=== PATIENT | male | born 1955 | race Caucasian/White ===

== ENCOUNTER 2017-06-01 21:45 | Emergency (ER) | payer BC ==
--- NOTE | 2017-06-01 22:26 | ERPHSYRPT ---
- History of Present Illness Time Seen by Provider: 06/01/17 22:20 Source: patient Exam Limitations: no limitations Patient Subjective Stated Complaint: Pt stated that he started noticing this AM that he wasn't able to empty his bladder. He will go to the restroom and only "trickle". Triage Nursing Assessment: Pt is A&O x3. Chest clear. Heart sounds normal. No skin issues. Abdomen is distended and is in pain during palpation and at rest. Rates his pain as a 5 out of 10. Physician History: Pt stated that he started noticing this AM that he wasn't able to empty his bladder. He will go to the restroom and only "trickle". Had same problem 7 years ago. recently 1 day ago he had CT abdomen and pelvis and was given dye Timing/Duration: today Severity of Pain-Max: none Severity of Pain-Current: none Modifying Factors: Improves With: nothing Associated Symptoms: urinary frequency Allergies/Adverse Reactions: No Known Drug Allergies Allergy (Verified 06/25/16 22:48) Home Medications: Aspirin [Aspirin EC] 81 mg PO HS 09/02/14 [History] Atenolol 25 mg PO DAILY 09/02/14 [History] Atorvastatin Calcium 20 mg PO HS 09/02/14 [History] Citalopram Hydrobromide 20 mg* [ceLEXa 20 MG] 20 mg PO DAILY 09/02/14 [ History] Dutasteride 0.5 MG [Avodart 0.5 MG] 0.5 mg PO HS 09/02/14 [History] Lansoprazole 30 mg PO DAILY 09/02/14 [History] Nitroglycerin [Nitrostat] 0.4 mg SL UD 09/02/14 [History] Ranitidine HCl 150 mg PO BID 09/02/14 [History] Fluticasone/Salmeterol [Advair 250-50 Diskus] 1 puff IH BID 06/25/16 [History] Hx Tetanus, Diphtheria Vaccination/Date Given: Yes (UNKNOWN) Hx Influenza Vaccination/Date Given: No Hx Pneumococcal Vaccination/Date Given: No Immunizations Up to Date: Yes - Past Medical History Pertinent Past Medical History: Yes Neurological History: No Pertinent History ENT History: No Pertinent History Cardiac History: Arrhythmia, Coronary Artery Disease, High Cholesterol Respiratory History: COPD Endocrine Medical History: No Pertinent History Musculoskeletal History: No Pertinent History GI Medical History: GERD History: Other Psycho-Social History: No Pertinent History Male Reproductive Disorders: Prostate Problems - Past Surgical History Past Surgical History: Yes Neuro Surgical History: Other Cardiac: Cardiac Catheterization Respiratory: No Pertinent History Gastrointestinal: No Pertinent History Genitourinary: No Pertinent History Musculoskeletal: No Pertinent History Male Surgical History: No Pertinent History Other Surgical History: BACK SURGERY, 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 - Social History Smoking Status: Current every day smoker Exposure to second hand smoke: Yes Drug Use: none Patient Lives Alone: No - Review of Systems Constitutional: No Symptoms Ears, Nose, & Throat: No Symptoms Respiratory: No Symptoms Cardiac: No Symptoms Abdominal/Gastrointestinal: No Symptoms Genitourinary Symptoms: Urinary Retention Musculoskeletal: No Symptoms Skin: No Symptoms Neurological: No Symptoms - Nursing Vital Signs Nursing Vital Signs: Initial Vital Signs Temperature 98.6 F 06/01/17 21:54 Pulse Rate 92 H 06/01/17 21:54 Blood Pressure 145/84 06/01/17 21:54 O2 Sat by Pulse Oximetry 96 06/01/17 21:54 Pain Scale Pain Intensity 5 - Physical Exam General Appearance: no apparent distress Eye Exam: PERRL/EOMI Ears, Nose, Throat Exam: normal ENT inspection Neck Exam: normal inspection Respiratory Exam: normal breath sounds Cardiovascular Exam: regular rate/rhythm Gastrointestinal/Abdomen Exam: distention (bladder ) SpO2: 96 - Course Nursing assessment & vital signs reviewed: Yes Ordered Tests: Active Orders 24 hr Category Date Time Status Urias [Catheter-Carlotta Urias] STAT Care 06/01/17 22:03 Active UA W/RFX UR CULTURE Stat Lab 06/01/17 22:20 Ordered - Progress Progress: improved Progress Note: 06/01/17 22:23 urias catheter placed. 1 liter of urine drained. patient is feeling much better , plan to discharge him with indwelling urias till sunday. advised to go to Dr Celeste Gordillo office on sunday AM for catheter removal Counseled pt/family regarding: lab results, diagnosis, need for follow-up - Departure Time of Disposition: 22:24 Departure Disposition: Home Clinical Impression: Acute retention of urine Condition: Stable Critical Care Time: No Referrals: MARIEL GORDILLO MD [Primary Care Provider] - Instructions: Urinary Retention in Men Additional Instructions: Follow-up with Dr. gordillo on Sunday morning for catheter removal, before that if any problem, come back to the emergency room. Continue all your home medications as usual. Follow the catheter Protocol.
[2017-06-01 22:33] VITALS: BP 115/66; PULSE 80; O2SAT 95
[2017-06-01 22:49] LABS: Collection Type CATH; Leukocyte Esterase NEGATIVE (NEGATIVE)
[2017-06-01 22:50] LABS: ADD URINE CULTURE? NO (NO); Bacteria RARE /HPF (NEGATIVE); Bilirubin NEGATIVE (NEGATIVE); Blood 250 Ery/ul (0-5); COMPLETE URINE MICROSCOPIC? YES; Epithelial Cells RARE /HPF (FEW); Glucose NEGATIVE (NEGATIVE)
== END 2017-06-01 22:55 | disposition home or self-care (01) ==
LOC: ED 21:45
DX: R33.9 Retention of urine, unspecified (principal)
CPT/HCPCS: 51702; 81000; 99283

== ENCOUNTER 2017-06-02 14:45 | Emergency (ER) | payer BC ==
[2017-06-02 15:00] VITALS: BP 138/84; PULSE 88; O2SAT 98
--- NOTE | 2017-06-02 15:12 | ERPHSYRPT ---
- History of Present Illness Time Seen by Provider: 06/02/17 14:56 Source: patient Exam Limitations: no limitations Patient Subjective Stated Complaint: Pt states "I had this urinary catheter placed last night and it is leaking." Triage Nursing Assessment: Pt alert and oriented X 3, skin pwd ambulates without difficutly, able to speak in full sentences. pt has indwelling urinary catheter with leg band on. Physician History: 61-year-old white male seen last night secondary to urinary retention and a Rushing catheter was placed. Patient states he has a history of prostate problems he was seen last night secondary to urinary obstruction a Rushing catheter was placed. Patient is here today stating that he is having leaking around his catheter. He is requesting to have the catheter removed I have offered to replace the catheter but he states he has done the same thing in the past and would like to try having the Rushing catheter removed at this time he states he will return or follow-up with his family doctor if he has further urinary obstruction. Past medical history includes arrhythmia, coronary artery disease, hyperlipidemia, COPD, GERD, prostate problems. 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 Timing/Duration: today (catheter placed last night leaking today around Rushing) Severity: mild Modifying Factors: Improves With: nothing Associated Symptoms: No nausea, No vomiting, No abdominal pain, No shortness of breath, No heartburn, No diaphoresis, No cough, No chills, No chest pain, No fever, No headaches, No loss of appetite, No malaise, No rash, No syncope, No seizure, No weakness Allergies/Adverse Reactions: No Known Drug Allergies Allergy (Verified 06/25/16 22:48) Home Medications: Aspirin [Aspirin EC] 81 mg PO HS 09/02/14 [History] Atenolol 25 mg PO DAILY 09/02/14 [History] Atorvastatin Calcium 20 mg PO HS 09/02/14 [History] Citalopram Hydrobromide 20 mg* [ceLEXa 20 MG] 20 mg PO DAILY 09/02/14 [ History] Dutasteride 0.5 MG [Avodart 0.5 MG] 0.5 mg PO HS 09/02/14 [History] Lansoprazole 30 mg PO DAILY 09/02/14 [History] Fluticasone/Salmeterol [Advair 250-50 Diskus] 1 puff IH BID 06/25/16 [History] Hx Tetanus, Diphtheria Vaccination/Date Given: No Hx Influenza Vaccination/Date Given: Yes Hx Pneumococcal Vaccination/Date Given: No Immunizations Up to Date: Yes - Review of Systems Constitutional: No Fever, No Chills Eyes: No Symptoms Ears, Nose, & Throat: No Symptoms Respiratory: No Cough, No Dyspnea Cardiac: No Chest Pain, No Edema, No Syncope Abdominal/Gastrointestinal: No Abdominal Pain, No Nausea, No Vomiting, No Diarrhea, No Constipation, No Hematemesis, No Hematochezia, No Melena, No Dysphagia, No Appetite Changes Genitourinary Symptoms: Urinary Retention (urinary retention with Rushing placed last night now leaking around Rushing) Musculoskeletal: No Back Pain, No Neck Pain Skin: No Rash Neurological: No Dizziness, No Focal Weakness, No Sensory Changes Psychological: No Symptoms Endocrine: No Symptoms All Other Systems: Reviewed and Negative - Past Medical History Pertinent Past Medical History: Yes Neurological History: No Pertinent History ENT History: No Pertinent History Cardiac History: Arrhythmia, Coronary Artery Disease, High Cholesterol Respiratory History: COPD Endocrine Medical History: No Pertinent History Musculoskeletal History: No Pertinent History GI Medical History: GERD History: Other Psycho-Social History: No Pertinent History Male Reproductive Disorders: Prostate Problems - Past Surgical History Past Surgical History: Yes Neuro Surgical History: Other Cardiac: Cardiac Catheterization Respiratory: No Pertinent History Gastrointestinal: No Pertinent History Genitourinary: No Pertinent History Musculoskeletal: No Pertinent History Male Surgical History: No Pertinent History Other Surgical History: BACK SURGERY, 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 - Social History Smoking Status: Current every day smoker How long have you smoked: years Exposure to second hand smoke: Yes Drug Use: none Patient Lives Alone: No - Nursing Vital Signs Nursing Vital Signs: Initial Vital Signs Temperature 97.3 F 06/02/17 14:52 Pulse Rate 88 06/02/17 14:52 Respiratory Rate 16 06/02/17 14:52 Blood Pressure 138/84 06/02/17 14:52 O2 Sat by Pulse Oximetry 98 06/02/17 14:52 Pain Scale Pain Intensity 0 - Physical Exam General Appearance: no apparent distress, alert Eye Exam: PERRL/EOMI, eyes nml inspection Ears, Nose, Throat Exam: normal ENT inspection, TMs normal, pharynx normal, moist mucous membranes Neck Exam: normal inspection, non-tender, supple, full range of motion Respiratory Exam: normal breath sounds, lungs clear, No respiratory distress Cardiovascular Exam: regular rate/rhythm, normal heart sounds, normal peripheral pulses Gastrointestinal/Abdomen Exam: soft, normal bowel sounds, No tenderness, No mass Male Genitalia Exam: other (Rushing catheter in place) Back Exam: normal inspection, normal range of motion, No CVA tenderness, No vertebral tenderness Extremity Exam: normal inspection, normal range of motion, pelvis stable Neurologic Exam: alert, oriented x 3, cooperative, normal mood/affect, nml cerebellar function, nml station & gait, sensation nml, No motor deficits Skin Exam: normal color, warm, dry, No rash Lymphatic Exam: No adenopathy SpO2 Interpretation: normal (98%) SpO2: 98 Oxygen Delivery: Room Air - Course Nursing assessment & vital signs reviewed: Yes - Progress Progress: improved Progress Note: 06/02/17 15:10 61-year-old white male who had a Rushing catheter placed last night secondary to urinary obstruction. He states he is now leaking around the Rushing. I have offered to replace the Rushing he states he does not want a Rushing replaced he would like it removed he states he had similar problems in the past had a Rushing placed in the had some leakage had a removed and he was doing fine. Will go ahead and have the nurses removed the Rushing. I have informed the patient that he could end up having urinary obstruction again and might need to have the Rushing replaced. He is to follow-up with his family doctor. He is return if obstruction or problems. - Departure Time of Disposition: 15:11 Departure Disposition: Home Clinical Impression: History of urinary tract obstruction Problem with Rushing catheter Qualifiers: Encounter type: initial encounter Qualified Code(s): T83.9XXA - Unspecified complication of genitourinary prosthetic device, implant and graft, initial encounter Condition: Fair Critical Care Time: No Referrals: MARIEL QUINONES MD [Primary Care Provider] - Additional Instructions: Return home. Follow-up with your family doctor. Return if unable to urinate or problems or for acute distress or for severe symptoms.
== END 2017-06-02 15:21 | disposition home or self-care (01) ==
LOC: ED 14:45
DX: T83.038A Leakage of other urinary catheter, initial encounter (principal); Z87.898 Personal history of other specified conditions
CPT/HCPCS: 99282; 99284

== ENCOUNTER 2019-10-27 20:54 | Emergency (ER) | payer MEDICARE, OTHER ==
--- NOTE | 2019-10-27 20:57 | ERPHSYRPT ---
- History of Present Illness Time Seen by Provider: 10/27/19 20:56 Source: patient Exam Limitations: no limitations Physician History: This is a 64-year-old male with history of prostate issues and recurrent acute urinary retention. The patient does have a history of atrial fibrillation hypertension and coronary artery disease. However, he has no complaints relative to these issues. States he has not been unable to urinate today at all. He just desires a straight catheterization and not Rushing placement to be discharged with that. He will then follow-up with his urologist. Timing/Duration: today Activites at Onset: none Quality: fullness, pressure Onset Location: suprapubic Pain Radiation: none Severity of Pain-Max: mild Severity of Pain-Current: mild Modifying Factors: Improves With: other (Able to urinate) Associated Symptoms: abdominal pain (Pubic pressure) Allergies/Adverse Reactions: No Known Drug Allergies Allergy (Verified 10/27/19 21:12) Home Medications: Aspirin [Aspirin EC] 81 mg PO HS 09/02/14 [History] Atenolol 25 mg PO DAILY 09/02/14 [History] Atorvastatin Calcium 20 mg PO HS 09/02/14 [History] Citalopram Hydrobromide 20 mg* [ceLEXa 20 MG] 20 mg PO DAILY 09/02/14 [ History] Dutasteride 0.5 MG [Avodart 0.5 MG] 0.5 mg PO HS 09/02/14 [History] Lansoprazole 30 mg PO DAILY 09/02/14 [History] Fluticasone/Salmeterol [Advair 250-50 Diskus] 1 puff IH BID 06/25/16 [History] Hx Tetanus, Diphtheria Vaccination/Date Given: No Hx Influenza Vaccination/Date Given: Yes Hx Pneumococcal Vaccination/Date Given: No - Past Medical History Pertinent Past Medical History: Yes Neurological History: No Pertinent History ENT History: No Pertinent History Cardiac History: Arrhythmia, Coronary Artery Disease, High Cholesterol Respiratory History: COPD Endocrine Medical History: No Pertinent History Musculoskeletal History: No Pertinent History GI Medical History: GERD History: Other Psycho-Social History: No Pertinent History Male Reproductive Disorders: Prostate Problems - Past Surgical History Past Surgical History: Yes Neuro Surgical History: Other Cardiac: Cardiac Catheterization Respiratory: No Pertinent History Gastrointestinal: No Pertinent History Genitourinary: No Pertinent History Musculoskeletal: No Pertinent History Male Surgical History: No Pertinent History Other Surgical History: BACK SURGERY, 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 - Social History Smoking Status: Current every day smoker How long have you smoked: years Exposure to second hand smoke: Yes Drug Use: none Patient Lives Alone: No - Review of Systems Constitutional: No Symptoms Eyes: No Symptoms Ears, Nose, & Throat: No Symptoms Respiratory: No Symptoms Cardiac: No Symptoms Abdominal/Gastrointestinal: Abdominal Pain (Prepubic pressure) Genitourinary Symptoms: Urinary Retention Musculoskeletal: No Symptoms Skin: No Symptoms Neurological: No Symptoms Psychological: No Symptoms Endocrine: No Symptoms Hematologic/Lymphatic: No Symptoms Immunological/Allergic: No Symptoms All Other Systems: Reviewed and Negative - Nursing Vital Signs Nursing Vital Signs: Initial Vital Signs Temperature 98.5 F 10/27/19 21:03 Pulse Rate 116 H 10/27/19 21:03 Respiratory Rate 18 10/27/19 21:03 Blood Pressure 163/103 10/27/19 21:03 O2 Sat by Pulse Oximetry 97 10/27/19 21:03 Pain Scale Pain Intensity 7 - Physical Exam General Appearance: no apparent distress, alert, anxiety Eye Exam: PERRL/EOMI, eyes nml inspection Ears, Nose, Throat Exam: normal ENT inspection, moist mucous membranes Neck Exam: normal inspection, non-tender, supple, full range of motion Respiratory Exam: No chest tenderness Gastrointestinal/Abdomen Exam: soft, normal bowel sounds, tenderness (Mild tenderness over the suprapubic region), No guarding, No rebound Rectal Exam: not done Extremity Exam: normal inspection, normal range of motion, pelvis stable Neurologic Exam: alert, oriented x 3, cooperative, electrical appliance servicer II-XII nml as tested Ordered Tests: Active Orders 24 hr Category Date Time Status CULTURE,URINE Stat Lab 10/27/19 21:15 Received UA W/RFX UR CULTURE Stat Lab 10/27/19 21:15 Completed Lab/Rad Data: Laboratory Results 10/27/19 Range/Units 21:15 Urine Color STRAW (YELLOW) Urine Appearance CLEAR (CLEAR) Urine pH 5.0 (5-6) Ur Specific [place] 1.004 (1.005-1.025) Urine Protein NEGATIVE (Negative) Urine Ketones NEGATIVE (NEGATIVE) Urine Blood NEGATIVE (0-5) Perry/ul Urine Nitrite NEGATIVE (NEGATIVE) Urine Bilirubin NEGATIVE (NEGATIVE) Urine Urobilinogen NEGATIVE (0-1) mg/dL Ur Leukocyte Esterase NEGATIVE (NEGATIVE) Urine WBC (Auto) NONE (0-5) /HPF Urine RBC (Auto) NONE (0-2) /HPF U Epithel Cells (Auto) NONE (FEW) /HPF Urine Bacteria (Auto) NONE (NEGATIVE) /HPF Urine Mucus (Auto) SLIGHT (NEGATIVE) /HPF Urine Culture Reflexed ORDERED SEPARATELY (NO) Urine Glucose NEGATIVE (NEGATIVE) mg/dL - Progress Progress: improved, re-examined Progress Note: 10/27/19 22:[address] to [address] a Rushing catheter temporarily. There was well over 2000 mL of urine out. Patient does not have a urinary tract infection. We will be removing the Rushing catheter prior to his discharge. Patient feels as though he does not need to maintain his Rushing catheter. In the past, he appears to do better with just a straight catheterization and not the Rushing catheter placement. 10/27/19 22:24 Counseled pt/family regarding: diagnosis, need for follow-up - Departure Departure Disposition: Home Clinical Impression: Urinary retention Condition: Stable Critical Care Time: No Referrals: MARIEL QUINONES MD [Primary Care Provider] - Additional Instructions: Follow-up with your urologist tomorrow for further management of your urinary retention.
[2019-10-27 22:06] LABS: Appearance CLEAR (CLEAR); Bilirubin NEGATIVE (NEGATIVE); Blood NEGATIVE Ery/ul (0-5); Glucose NEGATIVE (NEGATIVE); Ketones NEGATIVE (NEGATIVE); Leukocyte Esterase NEGATIVE (NEGATIVE); Mucus SLIGHT /HPF (NEGATIVE); Nitrite NEGATIVE (NEGATIVE); Protein,Urine Dip NEGATIVE (Negative); Specific Gravity 1.004 (1.005-1.025); Urobilinogen NEGATIVE mg/dL (0-1)
[2019-10-27 22:37] VITALS: BP 136/79; PULSE 69; O2SAT 94
== END 2019-10-27 22:33 | disposition home or self-care (01) ==
LOC: ED 20:54
DX: R33.9 Retention of urine, unspecified (principal); I10 Essential (primary) hypertension; I25.10 Atherosclerotic heart disease of native coronary artery without angina pectoris; Z79.899 Other long term (current) drug therapy; E78.00 Pure hypercholesterolemia, unspecified
CPT/HCPCS: 51702; 81001; 87086; 99284; P9612

== ENCOUNTER 2022-05-01 11:40 | Emergency (ER) | payer MEDICARE, OTHER ==
[2022-05-01 12:01] VITALS: O2SAT 93
--- NOTE | 2022-05-01 12:12 | ERPHSYRPT ---
- History of Present Illness Time Seen by Provider: 05/01/22 11:47 Source: patient Exam Limitations: no limitations Patient Subjective Stated Complaint: C/O inability to urinate. States he last urinated normally first thing this morning prior to a colonscopy. Patient states he had a colonoscopy at [facility] this am and he can't urinate now. Triage Nursing Assessment: Patient ambulated back to ED. He is alert and oriented. No SOB. Showing s/s of pain. Lower abdomen is firm. Physician History: This is a 66-year-old gentleman, with prior history of BPH urinary retention, presenting to the ED with acute urinary retention. -States that he urinated first thing this morning. Been to [facility] ED for colonoscopy, following which she has not been able to urinate. 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 Dates that 2 years ago he had a procedure done for BPH, since then he has not had any problem, -Patient has medical history of A. fib,htn,cad but does not have any problems with those at this time. -Patient reports that not want a Rushing catheter anchored as he has had trouble with it before. -He denies any fever, states that he did have abdominal pain from not being able to urinate it is relieved at this time. -He denies any chest pain or shortness of breath Timing/Duration: today Activites at Onset: none Quality: fullness Onset Location: suprapubic Pain Radiation: none Severity of Pain-Max: mild Severity of Pain-Current: mild Modifying Factors: Improves With: nothing Allergies/Adverse Reactions: No Known Drug Allergies Allergy (Verified 05/01/22 12:33) Home Medications: Aspirin [Aspirin EC] 81 mg PO HS 09/02/14 [History] Atorvastatin Calcium 20 mg PO HS 09/02/14 [History] Citalopram Hydrobromide 20 mg* [ceLEXa 20 MG] 20 mg PO DAILY 09/02/14 [History] Dutasteride 0.5 MG [Avodart 0.5 MG] 0.5 mg PO HS 09/02/14 [History] Lansoprazole 30 mg PO DAILY 09/02/14 [History] atenoloL [Atenolol] 25 mg PO DAILY 09/02/14 [History] Fluticasone/Salmeterol [Advair 250-50 Diskus] 1 puff IH BID 06/25/16 [History] Hx Tetanus, Diphtheria Vaccination/Date Given: Yes Hx Influenza Vaccination/Date Given: Yes Hx Pneumococcal Vaccination/Date Given: No Immunizations Up to Date: Yes Travel Risk - International Travel Have you traveled outside of the country in past 3 weeks: No - Coronavirus Screening Are you exhibiting any of the following symptoms?: No Close contact with a COVID-19 positive Pt in past 14-21 Days: No - Vaccine Status Have you recieved a Covid-19 vaccination: Yes 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 - Vaccination Dates Date of 2cond Vaccination (if applicable): 2020 - Past Medical History Pertinent Past Medical History: Yes Neurological History: No Pertinent History ENT History: No Pertinent History Cardiac History: Arrhythmia, Coronary Artery Disease, High Cholesterol Respiratory History: COPD Endocrine Medical History: No Pertinent History Musculoskeletal History: No Pertinent History GI Medical History: GERD History: Other Psycho-Social History: No Pertinent History Male Reproductive Disorders: Prostate Problems - Past Surgical History Past Surgical History: Yes Neuro Surgical History: Other Cardiac: Cardiac Catheterization Respiratory: No Pertinent History Gastrointestinal: No Pertinent History Genitourinary: No Pertinent History Musculoskeletal: No Pertinent History Male Surgical History: Prostate Surgery Other Surgical History: BACK SURGERY, 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 Medel for prostate issues - Social History Smoking Status: Current every day smoker How long have you smoked: Cigars Exposure to second hand smoke: Yes Drug Use: none Patient Lives Alone: No - Review of Systems Constitutional: No Symptoms, No Fever, No Chills Eyes: No Symptoms Ears, Nose, & Throat: No Symptoms Respiratory: No Symptoms Cardiac: No Symptoms Abdominal/Gastrointestinal: No Symptoms Genitourinary Symptoms: Urinary Retention Musculoskeletal: No Symptoms Skin: No Symptoms Neurological: No Symptoms Psychological: No Symptoms Endocrine: No Symptoms Hematologic/Lymphatic: No Symptoms Immunological/Allergic: No Symptoms All Other Systems: Reviewed and Negative - Nursing Vital Signs Nursing Vital Signs: Initial Vital Signs Temperature 96.9 F 05/01/22 11:49 Pulse Rate 65 05/01/22 11:49 Respiratory Rate 18 05/01/22 11:49 Blood Pressure 149/82 05/01/22 11:49 O2 Sat by Pulse Oximetry 93 L 05/01/22 11:49 Pain Scale Pain Intensity 0 - Physical Exam General Appearance: no apparent distress Eye Exam: PERRL/EOMI, eyes nml inspection Ears, Nose, Throat Exam: normal ENT inspection, TMs normal, pharynx normal Neck Exam: normal inspection, non-tender, supple, full range of motion Respiratory Exam: normal breath sounds, lungs clear, No respiratory distress Cardiovascular Exam: regular rate/rhythm, normal heart sounds, normal peripheral pulses Gastrointestinal/Abdomen Exam: soft, normal bowel sounds, distention, No tenderness Rectal Exam: deferred Male Genital Exam: enlarged prostate Back Exam: normal inspection Extremity Exam: normal inspection Neurologic Exam: alert, oriented x 3, cooperative Skin Exam: normal color, warm Lymphatic Exam: No adenopathy SpO2 Interpretation: normal SpO2: 93 O2 Delivery: Room Air Ordered Tests: Active Orders 24 hr Category Date Time Status UA W/RFX CULTURE Stat Lab 05/01/22 12:06 Completed Lab/Rad Data: Laboratory Results 05/01/22 Range/Units 12:06 Urinalys Dipstick Clnc MAIN LAB Urine Color YELLOW (YELLOW) Urine Appearance CLEAR (CLEAR) Urine pH 6.5 (5-6) Ur Specific Sellers 1.010 (1.005-1.025) POC Urine Protein Conf NEGATIVE (Negative) Urine Ketones NEGATIVE (NEGATIVE) Urine Nitrite NEGATIVE (NEGATIVE) Urine Bilirubin NEGATIVE (NEGATIVE) Urine Urobilinogen 0.2 (0-1) mg/dL Urine Leukocytes NEGATIVE (NEGATIVE) Urine WBC (Auto) NONE (0-5) /HPF Urine RBC (Auto) NONE (0-2) /HPF U Epithel Cells (Auto) NONE (FEW) /HPF Urine Bacteria (Auto) NONE (NEGATIVE) /HPF Urine RBC TRACE-INTACT (0-5) Perry/ul Ur Culture Indicated? NO Urine Glucose NEGATIVE (NEGATIVE) mg/dL - Progress Progress: improved Progress Note: 05/01/22 12:56 . -This is a 36-year-old gentleman presenting to the ED with acute urinary retention. -Rushing catheter was anchored and patient drained nearly 1300cc urine. -i spent >30 min discussing need to leave the Rushing catheter in so that he can follow-up with his urologist, patient stated that this is happened to him several times and that every time we leave a Rushing catheter in he has problems and comes back later the same evening to get it removed. -He reports that he wants the Ruhsing catheter removed, plans to call his urologist on discharge. -His symptoms are much improved since arrival and understands the risk of discontinuing the Rushing and the risk of recurrent urinary retention. -Insist that he will not go home with a Rushing catheter. - Departure Clinical Impression: Urinary retention due to benign prostatic hyperplasia Condition: Stable Critical Care Time: No Referrals: MARIEL QUINONES MD [Primary Care Provider] - Follow up/PCP as directed Additional Instructions: Discharge/Care Plan CHRISTIANORODO MOULTON was seen on 05/01/22 in the Emergency Room. The patient was counseled regarding Diagnosis,Lab results, Imaging studies, need for follow up and when to return to the Emergency Room. Prescriptions given: Discharge Note I have spoken with the patient and/or caregivers. I have explained the patient's condition, diagnosis and treatment plan based on the information available to me at this time. I have answered the patient's and/or caregiver's questions and addressed any concerns. The patient and/or caregivers have as good understanding of the patient's diagnosis, condition and treatment plan as can be expected at this point. The vital signs have been stable. The patient's condition is stable and appropriate for discharge from the emergency department. The patient will pursue further outpatient evaluation with the primary care physician or other designated or consulting physician as outlined in the discharge instructions. The patient and/or caregivers are agreeable to this plan of care and follow-up instructions have been explained in detail. The patient and/or caregivers have received these instruction. The patient/and or caregivers are aware that any significant change in condition or worsening of symptoms should prompt an immediate return to this or the closest emergency department or call 911.
[2022-05-01 12:28] LABS: Appearance CLEAR (CLEAR); Bilirubin NEGATIVE (NEGATIVE); Dipstick done @ ? MAIN LAB; Glucose NEGATIVE (NEGATIVE); Ketones NEGATIVE (NEGATIVE); Nitrite NEGATIVE (NEGATIVE); Ph 6.5 (5-6); Protein,Urine Dip NEGATIVE (Negative); RBC TRACE-INTACT Ery/ul (0-5); Urobilinogen 0.2 mg/dL (0-1)
[2022-05-01 12:33] LABS: Urine Cultured Indicated? NO
[2022-05-01 12:49] VITALS: BP 151/76; PULSE 48
== END 2022-05-01 13:00 | disposition home or self-care (01) ==
LOC: ED 11:40
DX: N40.1 Benign prostatic hyperplasia with lower urinary tract symptoms (principal); R33.8 Other retention of urine; I10 Essential (primary) hypertension; E78.5 Hyperlipidemia, unspecified; J44.9 Chronic obstructive pulmonary disease, unspecified; Z72.0 Tobacco use; Z79.899 Other long term (current) drug therapy
CPT/HCPCS: 51702; 81015; 99283